=== PATIENT | female | born 1935 | race Asian ===

== ENCOUNTER 2017-05-29 13:31 | Inpatient (IN) | payer OTHER, BC ==
[2017-05-29] VITALS (8 sets, daily range): BP systolic 89–114; BP diastolic 36–53
[~2017-05-29] VITALS: Ht 144.8 cm; Wt 54.0 kg
[~2017-05-29 13:31] MED LIST: ACETAMINOPHEN500 MG PO; CALCIUM + VITA1 EACH PO; HYTRIN2 MG PO; LASIX20 MG PO; LIDODERM 5% P1 PATCH TD; MICARDIS80 MG PO; MOTRIN400 MG PO; MULTIVITAMIN W1 EACH PO; Motrin PO; PREDNISONE20 MG PO; PriLOSEC OTC PO; ULTRAM50 MG PO; VITAMIN D10000 UNIT PO
[2017-05-29 13:43] LABS: BASOPHIL (%) 0.7 % (0-1); BASOPHIL COUNT 0.1 K/uL (0-0.1); EOSINOPHIL COUNT 0.3 K/uL (0-0.3); HEMATOCRIT 27.3 % (36.0-46.0); HEMOGLOBIN 8.4 G/DL (11.9-15.5); IMMATURE GRANULOCYTE (%) 4.9 % (0.0-0.7); LYMPHOCYTE (%) 20.2 % (15-42); LYMPHOCYTE COUNT 1.6 K/uL (1.0-2.8); MCH 30.2 PG (29.0-34.0); MCHC 30.8 G/DL (30.0-36.0); MCV 98.2 FL (83-99); MONOCYTE (%) 5.1 % (3-12); MONOCYTE COUNT 0.4 K/uL (0-0.8); NEUTROPHIL (%) 65.1 % (45-76); NRBC (%) 0.5 /100 WBC (0-0); PLATELET COUNT 150 K/uL (156-360); RBC DIS.WIDTH-CV 13.7 % (11.8-14.6); RBC DIS.WIDTH-SD 49.2 % (39-53); RED BLOOD COUNT 2.78 M/uL (3.80-5.20); WHITE BLOOD COUNT 7.7 K/uL (4.1-10.2)
[2017-05-29 13:48] LABS: INTER. NORMALIZED RATIO 1.1
[2017-05-29 13:49] LABS: AMYLASE 71 IU/L (1-118); CHLORIDE 101 mEq/L (99-109); POTASSIUM 5.1 mEq/L (3.7-5.4); SODIUM 132 mEq/L (136-147)
[2017-05-29 13:50] LABS: PTT 40.9 SEC (25-37)
[2017-05-29 13:51] LABS: GLUCOSE 316 mg/dL (70-99)
[2017-05-29 13:54] LABS: SERUM ETHYL ALCOHOL < 10 mg/dL
[2017-05-29 13:55] LABS: CREATININE 0.8 mg/dL (0.6-1.3); GFR ESTIMATE (CALCULATED) > 59 mL/min/
[2017-05-29 13:56] LABS: UREA NITROGEN (BUN) 22 mg/dL (9-23)
[2017-05-29 13:59] LABS: LIPASE 25 U/L (1.0-51.0)
[2017-05-29 14:03] LABS: TROP-I INTERPRETATION NEGATIVE; TROPONIN-I < 0.01 ng/mL (0.0-0.30)
[2017-05-29 14:05] LABS: BASE EXCESS -7.8 mEq/L (-3 to +3); CARBOXY HGB 1.5 % (0-5); METHEMOGLOBIN 0.4 % (0-1.5); PCO2 71 mm Hg (35-45); PO2 109 mm Hg (80-100)
[2017-05-29 14:06] LABS: COMMENTS - BLOOD GASES A+C+; DEVICE PB 980; FI02 100 %; MECHANICAL RATE 14 resp/min; MODE AC; PEEP 5 CM/H20; SITE RR; TIDAL VOLUME 315 ML; TOTAL RESP RATE 14 resp/min
[2017-05-29 14:11] LABS: PHOSPHORUS 6.8 mg/dL (2.5-4.9)
[2017-05-29 15:15] LABS: BASE EXCESS -6.3 mEq/L (-3 to +3); BICARBONATE 20.6 mEq/L (22-26); CARBOXY HGB 1.7 % (0-5); METHEMOGLOBIN 0.7 % (0-1.5)
[2017-05-29 15:16] LABS: PCO2 48 mm Hg (35-45); PO2 83 mm Hg (80-100)
[2017-05-29 15:17] LABS: COMMENTS - BLOOD GASES A+C+; DEVICE VENT; FI02 100 %; MECHANICAL RATE 24 resp/min; MODE A/C; PEEP 10 CM/H20; SITE RR; TIDAL VOLUME 315 ML; TOTAL RESP RATE 24 resp/min; pH 7.24 (7.35-7.45)
[2017-05-29 16:35] LABS: APPEARANCE CLOUDY ((CLEAR)); BILIRUBIN NEGATIVE; BLOOD SMALL; COLOR YELLOW ((YELLOW)); GLUCOSE (STRIP) >=500; KETONES NEGATIVE; LEUKOCYTES NEGATIVE; NITRITE NEGATIVE; PROTEIN (STRIP) >=500; SPECIFIC GRAVITY 1.013 (1.000-1.030); UROBILINOGEN 0.2 MG/DL (0.2-1.0)
[2017-05-29 16:45] LABS: AMPHETAMINE NEGATIVE (500 ng/mL); BARBITURATES NEGATIVE (200 ng/mL); BENZODIAZEPINES NEGATIVE (150 ng/mL); BUPRENORPHINE NEGATIVE (10 ng/mL); COCAINE NEGATIVE (150 ng/mL); METHADONE NEGATIVE (200 ng/mL); METHAMPHETAMINE NEGATIVE (500 ng/mL); OPIATES (MORPHINE) NEGATIVE (100 ng/mL); OXYCODONE NEGATIVE (100 ng/mL); PHENCYCLIDINE NEGATIVE (25 ng/mL); PROPOXYPHENE NEGATIVE (300 ng/mL); THC CANNABINOIDS NEGATIVE (50 ng/mL); TRICYCLIC ANTIDEPRESSANTS NEGATIVE (300 ng/mL)
[2017-05-29 16:59] LABS: BACTERIA RARE /HPF; EPITHELIAL CELLS 1+ /HPF; MUCUS TRACE /LPF; RED BLOOD CELLS 20-30 /HPF (0-5); UCUL ADDED? YES; WHITE BLOOD CELLS 30-40 /HPF (0-5)
[2017-05-29 20:47] LABS: BASE EXCESS -3.3 mEq/L (-3 to +3); BICARBONATE 21.2 mEq/L (22-26); CARBOXY HGB 1.1 % (0-5); METHEMOGLOBIN 0.8 % (0-1.5)
[2017-05-29 20:48] LABS: COMMENTS - BLOOD GASES C+; DEVICE VENT; FI02 100 %; MECHANICAL RATE 24 resp/min; MODE ACVC; PCO2 35 mm Hg (35-45); PEEP 8 CM/H20; PO2 192 mm Hg (80-100); SITE LR; TIDAL VOLUME 400 ML; TOTAL RESP RATE 24 resp/min; pH 7.39 (7.35-7.45)
[2017-05-30] VITALS (24 sets, daily range): BP systolic 106–131; BP diastolic 39–62
[2017-05-30 05:57] LABS: HEMATOCRIT 23.4 % (36.0-46.0); HEMOGLOBIN 7.6 G/DL (11.9-15.5); MCH 30.2 PG (29.0-34.0); MCHC 32.5 G/DL (30.0-36.0); PLATELET COUNT 125 K/uL (156-360); RBC DIS.WIDTH-CV 13.8 % (11.8-14.6); RBC DIS.WIDTH-SD 46.2 % (39-53); RED BLOOD COUNT 2.52 M/uL (3.80-5.20); WHITE BLOOD COUNT 10.5 K/uL (4.1-10.2)
[2017-05-30 05:58] LABS: MCV 92.9 FL (83-99)
[2017-05-30 06:18] LABS: ALKALINE PHOSPHATASE 35 IU/L (3-129); ALT (GPT) 117 IU/L (3-49); AST (GOT) 114 IU/L (2-34); CHLORIDE 105 MEQ/L (99-109); CREATININE 0.6 MG/DL (0.6-1.3); GFR ESTIMATE (CALCULATED) > 59 mL/min/; GLUCOSE 171 mg/dL (70-99); SODIUM 135 MEQ/L (136-147); TOTAL BILIRUBIN 1.1 MG/DL (0.0-1.0); UREA NITROGEN (BUN) 20 mg/dL (9-23)
[2017-05-31] VITALS (24 sets, daily range): BP systolic 102–138; BP diastolic 44–67
[2017-05-31 05:30] LABS: BASE EXCESS -0.1 mEq/L (-3 to +3); BICARBONATE 21.6 mEq/L (22-26); CARBOXY HGB 1.9 % (0-5); COMMENTS - BLOOD GASES C+; METHEMOGLOBIN 1.5 % (0-1.5); PCO2 23 mm Hg (35-45); PO2 125 mm Hg (80-100); SITE LR
[2017-05-31 05:31] LABS: DEVICE VENT; FI02 30 %; MECHANICAL RATE 24 resp/min; MODE ACVC; PEEP 5 CM/H20; TIDAL VOLUME 400 ML; TOTAL RESP RATE 24 resp/min; pH 7.58 (7.35-7.45)
[2017-05-31 08:11] LABS: BICARBONATE 22.2 mEq/L (22-26); PCO2 26 mm Hg (35-45); PO2 119 mm Hg (80-100); SITE RR; pH 7.54 (7.35-7.45)
[2017-05-31 08:12] LABS: COMMENTS - BLOOD GASES A+C+; DEVICE 980 PB; FI02 30 %; MECHANICAL RATE 18 resp/min; MODE AC; O2 FLOW 50 L/MIN; PEEP 5 CM/H20; TIDAL VOLUME 400 ML; TOTAL RESP RATE 21 resp/min
[2017-05-31 09:40] LABS: BASOPHIL (%) 0.1 % (0-1); EOSINOPHIL (%) 0 % (0-5); HEMATOCRIT 19.9 % (36.0-46.0); IMMATURE GRANULOCYTE (%) 1.1 % (0.0-0.7); LYMPHOCYTE (%) 4.6 % (15-42); LYMPHOCYTE COUNT 0.6 K/uL (1.0-2.8); MCH 30.3 PG (29.0-34.0); MCHC 33.7 G/DL (30.0-36.0); MONOCYTE (%) 7.8 % (3-12); MONOCYTE COUNT 0.9 K/uL (0-0.8); NEUTROPHIL (%) 86.4 % (45-76); NEUTROPHIL COUNT 10.4 K/uL (1.8-6.4); NRBC (%) 0.2 /100 WBC (0-0); PLATELET COUNT 110 K/uL (156-360); RBC DIS.WIDTH-SD 49.2 % (39-53); RED BLOOD COUNT 2.21 M/uL (3.80-5.20)
[2017-05-31 09:42] LABS: HEMOGLOBIN 6.7 G/DL (11.9-15.5)
[2017-05-31 09:58] LABS: ALBUMIN 2.9 G/DL (3.2-4.8); ALKALINE PHOSPHATASE 36 IU/L (3-129); ALT (GPT) 70 IU/L (3-49); AST (GOT) 96 IU/L (2-34); CHLORIDE 107 MEQ/L (99-109); CREATININE 0.8 MG/DL (0.6-1.3); GFR ESTIMATE (CALCULATED) > 59 mL/min/; GLUCOSE 141 mg/dL (70-99); MAGNESIUM 1.7 mg/dl (1.3-2.7); PHOSPHORUS 1.8 mg/dL (2.5-4.9); POTASSIUM 3.3 MEQ/L (3.7-5.4); SODIUM 138 MEQ/L (136-147); TOTAL BILIRUBIN 1.2 MG/DL (0.0-1.0); UREA NITROGEN (BUN) 22 mg/dL (9-23)
[2017-06-01] VITALS (29 sets, daily range): BP systolic 0–158; BP diastolic 0–100
[2017-06-01 07:12] LABS: BASOPHIL (%) 0.1 % (0-1); EOSINOPHIL (%) 0.1 % (0-5); HEMATOCRIT 18.7 % (36.0-46.0); IMMATURE GRANULOCYTE (%) 0.9 % (0.0-0.7); LYMPHOCYTE (%) 6.9 % (15-42); LYMPHOCYTE COUNT 0.9 K/uL (1.0-2.8); MCH 30.4 PG (29.0-34.0); MCHC 33.2 G/DL (30.0-36.0); MCV 91.7 FL (83-99); MONOCYTE (%) 9.2 % (3-12); MONOCYTE COUNT 1.2 K/uL (0-0.8); NEUTROPHIL (%) 82.8 % (45-76); NEUTROPHIL COUNT 10.7 K/uL (1.8-6.4); NRBC (%) 0.2 /100 WBC (0-0); PLATELET COUNT 100 K/uL (156-360); RBC DIS.WIDTH-CV 15.6 % (11.8-14.6); RBC DIS.WIDTH-SD 52.7 % (39-53); RED BLOOD COUNT 2.04 M/uL (3.80-5.20)
[2017-06-01 07:20] LABS: HEMOGLOBIN 6.2 G/DL (11.9-15.5)
[2017-06-01 07:31] LABS: ALBUMIN 2.8 G/DL (3.2-4.8); ALKALINE PHOSPHATASE 44 IU/L (3-129); ALT (GPT) 54 IU/L (3-49); AST (GOT) 107 IU/L (2-34); CHLORIDE 109 MEQ/L (99-109); CREATININE 0.8 MG/DL (0.6-1.3); GFR ESTIMATE (CALCULATED) > 59 mL/min/; GLUCOSE 169 mg/dL (70-99); PHOSPHORUS 2.6 mg/dL (2.5-4.9); POTASSIUM 3.8 MEQ/L (3.7-5.4); SODIUM 139 MEQ/L (136-147); TOTAL BILIRUBIN 0.7 MG/DL (0.0-1.0); TOTAL PROTEIN 4.8 G/DL (6.4-8.3); UREA NITROGEN (BUN) 32 mg/dL (9-23)
[2017-06-02] VITALS (23 sets, daily range): BP systolic 0–152; BP diastolic 0–82
[2017-06-02 07:38] LABS: BASOPHIL (%) 0.1 % (0-1); EOSINOPHIL (%) 0.5 % (0-5); EOSINOPHIL COUNT 0.1 K/uL (0-0.3); HEMATOCRIT 24.6 % (36.0-46.0); HEMOGLOBIN 8.2 G/DL (11.9-15.5); IMMATURE GRANULOCYTE (%) 1.1 % (0.0-0.7); LYMPHOCYTE (%) 6.3 % (15-42); LYMPHOCYTE COUNT 0.7 K/uL (1.0-2.8); MCH 30.8 PG (29.0-34.0); MCHC 33.3 G/DL (30.0-36.0); MCV 92.5 FL (83-99); MONOCYTE (%) 6.9 % (3-12); MONOCYTE COUNT 0.7 K/uL (0-0.8); NEUTROPHIL (%) 85.1 % (45-76); NEUTROPHIL COUNT 8.7 K/uL (1.8-6.4); NRBC (%) 0.3 /100 WBC (0-0); PLATELET COUNT 91 K/uL (156-360); RBC DIS.WIDTH-SD 50.4 % (39-53); RED BLOOD COUNT 2.66 M/uL (3.80-5.20); WHITE BLOOD COUNT 10.2 K/uL (4.1-10.2)
[2017-06-02 07:53] LABS: ALBUMIN 2.8 G/DL (3.2-4.8); CHLORIDE 110 MEQ/L (99-109); MAGNESIUM 2.2 mg/dl (1.3-2.7); POTASSIUM 4.1 MEQ/L (3.7-5.4); SODIUM 140 MEQ/L (136-147); TOTAL BILIRUBIN 0.8 MG/DL (0.0-1.0)
[2017-06-02 07:59] LABS: ALKALINE PHOSPHATASE 51 IU/L (3-129); ALT (GPT) 48 IU/L (3-49); AST (GOT) 107 IU/L (2-34); CREATININE 0.6 MG/DL (0.6-1.3); GFR ESTIMATE (CALCULATED) > 59 mL/min/; GLUCOSE 142 mg/dL (70-99); PHOSPHORUS 2.5 mg/dL (2.5-4.9); TOTAL PROTEIN 4.8 G/DL (6.4-8.3); UREA NITROGEN (BUN) 34 mg/dL (9-23)
[2017-06-03] VITALS (14 sets, daily range): BP systolic 106–152; BP diastolic 50–78
[2017-06-03 07:10] LABS: BASOPHIL (%) 0.1 % (0-1); EOSINOPHIL (%) 0.5 % (0-5); EOSINOPHIL COUNT 0.1 K/uL (0-0.3); HEMATOCRIT 24.4 % (36.0-46.0); HEMOGLOBIN 8.1 G/DL (11.9-15.5); IMMATURE GRANULOCYTE (%) 0.6 % (0.0-0.7); LYMPHOCYTE (%) 5.9 % (15-42); LYMPHOCYTE COUNT 0.6 K/uL (1.0-2.8); MCH 30.9 PG (29.0-34.0); MCHC 33.2 G/DL (30.0-36.0); MCV 93.1 FL (83-99); MONOCYTE (%) 8.9 % (3-12); MONOCYTE COUNT 0.9 K/uL (0-0.8); NEUTROPHIL COUNT 8.2 K/uL (1.8-6.4); NRBC (%) 0.2 /100 WBC (0-0); PLATELET COUNT 105 K/uL (156-360); RBC DIS.WIDTH-CV 15.4 % (11.8-14.6); RBC DIS.WIDTH-SD 51.6 % (39-53); RED BLOOD COUNT 2.62 M/uL (3.80-5.20); WHITE BLOOD COUNT 9.7 K/uL (4.1-10.2)
[2017-06-03 07:40] LABS: ALBUMIN 2.7 G/DL (3.2-4.8); ALT (GPT) 57 IU/L (3-49); AST (GOT) 100 IU/L (2-34); CHLORIDE 112 MEQ/L (99-109); CREATININE 0.5 MG/DL (0.6-1.3); GFR ESTIMATE (CALCULATED) > 59 mL/min/; GLUCOSE 128 mg/dL (70-99); MAGNESIUM 2.4 mg/dl (1.3-2.7); PHOSPHORUS 3.1 mg/dL (2.5-4.9); POTASSIUM 4.5 MEQ/L (3.7-5.4); SODIUM 141 MEQ/L (136-147); TOTAL PROTEIN 4.7 G/DL (6.4-8.3); UREA NITROGEN (BUN) 34 mg/dL (9-23)
[2017-06-03 07:42] LABS: ALKALINE PHOSPHATASE 82 IU/L (3-129); TOTAL BILIRUBIN 1.2 MG/DL (0.0-1.0)
[2017-06-04 07:41] VITALS: BP 108/52
[2017-06-05 07:44] VITALS: BP 133/63
== END 2017-06-05 17:22 | disposition hospice, home (50) | DRG 207 ==
LOC: EME 13:31 → EDOF 14:23 → 5EAST 14:23 → 4WEST 14:23 → CANRESERV 14:24 → ENRESERV 14:24 → 4WEST 15:51 → ENRESERV 06-03 16:10 → 5EAST 06-03 18:03
PROVIDERS: Emergency Medicine; Internal Medicine; Internal Medicine Critical Care Medicine
PROC: 5A1955Z Respiratory Ventilation, Greater than 96 Consecutive Hours (ICD-10-PCS; principal; 2017-05-29)
PROC: 30233N1 Transfusion of Nonautologous Red Blood Cells into Peripheral Vein, Percutaneous Approach (ICD-10-PCS; 2017-06-01)
DX: J96.20 Acute and chronic respiratory failure, unspecified whether with hypoxia or hypercapnia (principal); G93.1 Anoxic brain damage, not elsewhere classified; I46.9 Cardiac arrest, cause unspecified; S22.43XA Multiple fractures of ribs, bilateral, initial encounter for closed fracture; Y84.8 Other medical procedures as the cause of abnormal reaction of the patient, or of later complication, without mention of misadventure at the time of the procedure; R40.20 Unspecified coma; Z51.5 Encounter for palliative care; Z66 Do not resuscitate; J84.10 Pulmonary fibrosis, unspecified; J44.9 Chronic obstructive pulmonary disease, unspecified; E87.4 Mixed disorder of acid-base balance; G25.3 Myoclonus; I10 Essential (primary) hypertension; I48.91 Unspecified atrial fibrillation; K21.9 Gastro-esophageal reflux disease without esophagitis; R00.0 Tachycardia, unspecified; Z99.81 Dependence on supplemental oxygen
CPT/HCPCS: 36600; 70450; 71045; 71250; 80047; 80048; 80048 91; 80053; 81003; 82150; 82803; 83605; 83690; 83735; 83880; 83930; 84100; 84484; 85025; 85025 91; 85027; 85610; 85730; 86850; 86900; 86901; 86920; 87040; 87070; 87086; 87205; 87502; 87641; 94002; 94003; 94640; 94640 76; 94799; 95819; 99202; 99281; 99285; G0480; J0295; J0696; J1650; J1940; J1953; J1956; J2060; J2270; J2704; J7030; J7042; J7050; J7644; P9016; S0028